=== PATIENT | female | born 1945 | race Caucasian/White ===

== ENCOUNTER 2019-01-24 06:14 | Emergency (ER) | payer MEDICARE ==
--- NOTE | 2019-01-24 07:01 | ED Physician Documentation ---
PD HPI SYNCOPE - Stated complaint Stated Complaint: GLF - Chief complaint Chief Complaint: Trauma Ext - History obtained from History obtained from: Patient - History of Present Illness Witnessed: Unwitnessed ( heard a thud from next room and came into bathroom to find pt rousing and moving around some. Confused at first but alert in a few minutes. Some pain in shoulder and struck head. Seemed confused for few minutes. Patient says she remembers going to bathroom and stood up and felt lightheaded, then remembers awake on the floor.) Timing - onset: How many minutes ago Duration: Minutes (1) Preceding symptoms: Headache (some headache where struck head on door while falling.), Light headed. No: Chest pain, Dyspnea, Abdominal pain, Generalized weakness Associated symptoms: No: Chest pain, Nausea / vomiting, Abdominal pain Contributing factors: Just stood up (after going to the bathroom). No: Recent med change, Decreased PO intake Injury occurred: Fell, Head injury. 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 Cardiovascular: Other - Present Medications Home Medications: Ambulatory Orders Medication Instructions Recorded Confirmed No Known Home Medications 01/24/19 01/24/19 - Allergies Allergies/Adverse Reactions: Allergies Allergy/AdvReac Type Severity Reaction Status Date / Time No Known Drug Allergies Allergy Verified 01/24/19 06:29 - Social History Does the pt smoke?: No Smoking Status: Never smoker Does the pt drink ETOH?: No Does the pt have substance abuse?: No - Immunizations Immunizations are current?: Yes - POLST Patient has POLST: No PD ED PE NORMAL - Vitals Vital signs reviewed: Yes - General General: Alert and oriented X 3, Well developed/nourished, Other (chin tender. Some tender frontal scalp. ) - HEENT HEENT: PERRL, EOMI - Neck Neck: Supple, no meningeal sign, No adenopathy - Cardiac Cardiac: RRR, No murmur - Respiratory Respiratory: Clear bilaterally, Other (no chestwall tenderness) - Abdomen Abdomen: Soft, Non tender - Back Back: No CVA TTP, No spinal TTP - Derm Derm: Normal color, Warm and dry - Extremities Extremities: Other (left shoulder tender in scapular area. No deformity. ) - Neuro Neuro: Alert and oriented X 3, perfumer 2-12 intact, No motor deficit, No sensory deficit, Normal speech Results - Vitals Vitals: Vital Signs - 24 hr 01/24/19 01/24/19 01/24/19 06:20 06:57 08:10 Temperature 36.7 C Heart Rate 97 81 Heart Rate [ 94 Sitting] Heart Rate [ 90 Standing] Heart Rate [ 93 Supine] Respiratory 18 16 Rate Blood Pressure 140/78 H 126/74 Blood Pressure 146/90 H [Sitting] Blood Pressure 153/95 H [Standing] Blood Pressure 122/68 [Supine] O2 Saturation 98 100 01/24/19 01/24/19 09:17 09:18 Temperature 36.9 C 36.9 C Heart Rate 85 85 Heart Rate [ Sitting] Heart Rate [ Standing] Heart Rate [ Supine] Respiratory 20 17 Rate Blood Pressure 132/70 H 132/70 H Blood Pressure [Sitting] Blood Pressure [Standing] Blood Pressure [Supine] O2 Saturation 99 99 Oxygen O2 Source Room air - Labs Labs: Laboratory Tests 01/24/19 01/24/19 01/24/19 07:52 07:52 07:52 WBC 9.8 RBC 4.33 Hgb 13.7 Hct 43.3 MCV 100.0 H MCH 31.6 H MCHC 31.6 L RDW 13.2 Plt Count 186 MPV 10.3 Neut # (Auto) 7.6 H Lymph # (Auto) 1.5 [place] # (Auto) 0.5 Eos # (Auto) 0.1 Baso # (Auto) 0.1 Absolute Nucleated RBC 0.00 Nucleated RBC % 0.0 Sodium 139 Potassium 4.1 Chloride 104 Carbon Dioxide 24 Anion Gap 11.0 BUN 21 H Creatinine 0.6 Estimated GFR (MDRD) 98 Glucose 101 H Calcium 9.2 Magnesium 2.4 Total Bilirubin 0.5 AST 15 ALT 16 Alkaline Phosphatase 61 Troponin I High Sens 3.2 Total Protein 7.2 Albumin 4.6 Globulin 2.6 Albumin/Globulin Ratio 1.8 Lipase 38 - Rads (name of study) head CT Radiology: Prelim report reviewed, See rad report (no acute findings) left shoulder Radiology: Prelim report reviewed (no fractures), See rad report PD MEDICAL DECISION MAKING - ED course Complexity details: considered differential (seems likely postural/micturation syncope. No signs of cardiogenic cause. She is well now. ), d/w patient Departure - Departure Disposition: 01 Home, Self Care Clinical Impression: Postural syncope Shoulder contusion Qualifiers: Encounter type: initial encounter Laterality: left Qualified Code(s): S40.012A - Contusion of left shoulder, initial encounter Facial contusion Qualifiers: Encounter type: initial encounter Qualified Code(s): S00.83XA - Contusion of other part of head, initial encounter Mild concussion Qualifiers: Encounter type: initial encounter Loss of consciousness presence/duration: with LOC of 30 min or less Qualified Code(s): S06.0X1A - Concussion with loss of consciousness of 30 minutes or less, initial encounter Condition: Stable Record reviewed to determine appropriate education?: Yes Instructions: ED Fainting Unkn Cause Comments: It sounds like you had a fainting episode and may have had some mild concussion. You could have had some confusion after awakening from just the fainting itself as well. He look good now so does not seem to have any lasting symptoms. Stay well-hydrated. Get up and move slowly when first sitting up or standing up today and in the mornings. Recheck if any persistent or recurrent episodes or symptoms. No signs of heart cause of this and your basic blood tests are looking good here. Discharge Date/Time: 01/24/19 09:17
[2019-01-24] MEDS ORDERED: SODIUM CHLORIDE 0.9% 1,000 ML IV ONE (07:22)
--- NOTE | 2019-01-24 07:56 | CT Report ---
Reason: fell and struck face; ? concussive confused Procedure Date: 01/24/2019 Accession Number: [id number] / [id number] Procedure: CT - HEAD WO CPT Code: FULL RESULT: EXAM: CT HEAD EXAM DATE: 01/24/2019 07:45 AM. CLINICAL HISTORY: Fell and struck face; ? concussive confused. COMPARISON: None. TECHNIQUE: Multiaxial CT images were obtained from the foramen magnum to the vertex. Reformats: Sagittal and coronal. IV contrast: None. In accordance with CT protocol optimization, one or more of the following dose reduction techniques were utilized for this exam: automated exposure control, adjustment of mA and/or KV based on patient size, or use of iterative reconstructive technique. FINDINGS: Parenchyma: No intraparenchymal hemorrhage. No evidence of mass, midline shift, or CT findings of infarction. Dave-white differentiation is distinct. Extraaxial Spaces: Normal for age. No subdural or epidural collections identified. Ventricles: Normal in size and position. Sinuses and Orbits: Imaged paranasal sinuses, orbits, and mastoids show no significant abnormality. Bones: No evidence of fracture or calvarial defect. Other: None. IMPRESSION: No intracranial hemorrhage, mass-effect, CT evidence of acute infarct, or other acute intracranial abnormality. RADIA
--- NOTE | 2019-01-24 07:57 | XRAY Report ---
Reason: fall and struck shoulder Procedure Date: 01/24/2019 Accession Number: [id number] / [id number] Procedure: XR - Shoulder 3 View LT CPT Code: FULL RESULT: EXAM: LEFT SHOULDER RADIOGRAPHY EXAM DATE: 01/24/2019 07:46 AM. CLINICAL HISTORY: Fall and struck shoulder. COMPARISON: None. TECHNIQUE: 3 views. FINDINGS: Bones: Normal. No fracture or bone lesion. Joints: The glenohumeral and acromioclavicular joints are normal. Soft tissues: The visualized hemithorax is unremarkable. No soft tissue swelling. IMPRESSION: Normal shoulder radiography. No fracture or other acute osseous abnormality. RADIA
[2019-01-24 08:08] LABS: BASOPHILS # (AUTO) 0.1 10^3/uL (0.0-0.1); BASOPHILS % (AUTO) 0.7 %; EOSINOPHILS # (AUTO) 0.1 10^3/uL (0.0-0.7); EOSINOPHILS % (AUTO) 0.5 %; HGB - HEMOGLOBIN 13.7 g/dL (12.0-16.0); LYMPHOCYTES # (AUTO) 1.5 10^3/uL (1.5-3.5); MEAN CORPUSCULAR HEMOGLOBIN 31.6 pg (27.0-31.0); MEAN CORPUSCULAR HGB CONC 31.6 g/dL (32.0-36.0); MEAN PLATELET VOLUME 10.3 fL (7.9-10.8); MONOCYTES # (AUTO) 0.5 10^3/uL (0.0-1.0); MONOCYTES % (AUTO) 5.5 %; NEUTROPHILS # (AUTO) 7.6 10^3/uL (1.5-6.6); PLT - PLATELET COUNT 186 10^3/uL (130-450); RED BLOOD COUNT 4.33 10^6/uL (4.20-5.40); RED CELL DISTRIBUTION WIDTH 13.2 % (12.0-15.0); WHITE BLOOD COUNT 9.8 x10^3/uL (4.8-10.8)
[2019-01-24 08:28] LABS: ALBUMIN 4.6 g/dL (3.2-5.5); ALBUMIN/GLOBULIN RATIO 1.8 (1.0-2.2); BILIRUBIN,TOTAL 0.5 mg/dL (0.2-1.0); CALCIUM 9.2 mg/dL (8.5-10.3); CREATININE 0.6 mg/dL (0.4-1.0); MAGNESIUM 2.4 mg/dL (1.7-2.8); TOTAL PROTEIN 7.2 g/dL (6.7-8.2)
[2019-01-24 09:18] VITALS: BP 132/70
== END 2019-01-24 09:17 | disposition home or self-care (01) ==
LOC: ED 06:14
DX: R55 Syncope and collapse (principal); S06.0X1A Concussion with loss of consciousness of 30 minutes or less, initial encounter; S40.012A Contusion of left shoulder, initial encounter; S00.83XA Contusion of other part of head, initial encounter; W18.30XA Fall on same level, unspecified, initial encounter; Y92.002 Bathroom of unspecified non-institutional (private) residence as the place of occurrence of the external cause
CPT/HCPCS: 36415; 70450; 80053; 83690; 83735; 84484; 85025; 93005; 99284

== ENCOUNTER 2019-07-13 09:47 | Outpatient (CLI) | payer MEDICARE | END 2019-07-13 09:48 | disposition critical access hospital (66) | LOC: EMS 09:47 | PROVIDERS: ATTEND Surgery | DX: R00.2 Palpitations (principal); R42 Dizziness and giddiness | CPT/HCPCS: A0425; A0429 ==

== ENCOUNTER 2019-07-13 10:26 | Emergency (ER) | payer MEDICARE ==
[2019-07-13] MEDS ORDERED: ADENOSINE 6 MG/2 ML VIAL IVP STA (10:36)
[2019-07-13] MEDS ORDERED: SODIUM CHLORIDE 0.9% 1,000 ML IV ONE ×2 (10:37→11:43)
[2019-07-13] MEDS ORDERED: ADENOSINE 6 MG/2 ML VIAL IVP ONE (10:47)
--- NOTE | 2019-07-13 10:54 | ED Physician Documentation ---
History of Present Illness - Stated complaint Stated Complaint: SVT - Chief complaint Chief Complaint: Cardiac - History obtained from History obtained from: Patient, Family, EMS - History of Present Illness Timing: Today Pain level max: 0 Pain level now: 0 - Additonal information Additional information: 74-year-old female presents to the emergency department with complaint of palpitations. This started approximately an hour prior to arrival. She has never had this before. No chest pain. No shortness of breath. Nothing makes it better or worse. Is not on any medications at home. Patient states that her normal heart rate is approximately 95 to 100 bpm Review of Systems Constitutional: denies: Fever, Chills Nose: denies: Rhinorrhea / runny nose, Congestion Cardiac: denies: Chest pain / pressure Respiratory: denies: Dyspnea, Cough GI: denies: Abdominal Pain, Nausea, Vomiting, Diarrhea Skin: denies: Rash Musculoskeletal: denies: Neck pain, Back pain PD PAST MEDICAL HISTORY - Past Medical History Cardiovascular: High cholesterol Respiratory: None Endocrine/Autoimmune: None GI: None : None HEENT: None Psych: Claustrophobia Musculoskeletal: Osteoarthritis Derm: None - Past Surgical History Past Surgical History: Yes 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 Cardiovascular: Other - Present Medications Home Medications: Ambulatory Orders Medication Instructions Recorded Confirmed No Known Home Medications 01/24/19 07/13/19 - Allergies Allergies/Adverse Reactions: Allergies Allergy/AdvReac Type Severity Reaction Status Date / Time No Known Drug Allergies Allergy Verified 07/13/19 10:38 - Social History Does the pt smoke?: No Smoking Status: Never smoker Does the pt drink ETOH?: No Does the pt have substance abuse?: No - Immunizations Immunizations are current?: Yes - POLST Patient has POLST: No PD ED PE NORMAL - Vitals Vital signs reviewed: Yes - General General: Alert and oriented X 3, No acute distress - HEENT HEENT: PERRL - Neck Neck: Supple, no meningeal sign - Cardiac Cardiac: Other (Tachycardic) - Respiratory Respiratory: No respiratory distress, Clear bilaterally - Abdomen Abdomen: Soft, Non tender, Non distended - Derm Derm: Warm and dry - Extremities Extremities: No edema - Neuro Neuro: Alert and oriented X 3 - Psych Psych: Normal mood, Normal affect Results - Vitals Vitals: Vital Signs - 24 hr 07/13/19 07/13/1920 10:29 10:48 11:25 Temperature 36.8 C Heart Rate 162 H 130 H 112 H Respiratory 18 18 18 Rate Blood Pressure 138/113 H 149/101 H 131/86 H O2 Saturation 99 98 99 07/13/19 07/13/19 12:00 12:30 Temperature Heart Rate 118 H 110 H Respiratory 24 18 Rate Blood Pressure 155/103 H 145/88 H O2 Saturation 98 100 Oxygen O2 Source Room air - EKG (time done) 1032 Rate: Rate (enter#) (162) Rhythm: SVT [place]: Normal QRS: Normal Ischemia: Normal ST segments 1217 Rate: Rate (enter#) (107) Rhythm: Sinus tachycardia [place]: Normal Intervals: Normal [place] QRS: Normal Ischemia: Normal ST segments - Labs Labs: Laboratory Tests 07/13/19 07/13/19 10:50 10:50 WBC 5.8 RBC 4.54 Hgb 14.4 Hct 44.3 MCV 97.6 MCH 31.7 H MCHC 32.5 RDW 13.6 Plt Count 209 MPV 9.5 Neut # (Auto) 3.6 Lymph # (Auto) 1.6 [place] # (Auto) 0.5 Eos # (Auto) 0.1 Baso # (Auto) 0.1 Absolute Nucleated RBC 0.00 Nucleated RBC % 0.0 Sodium 140 Potassium 4.2 Chloride 102 Carbon Dioxide 22 Anion Gap 16.0 H BUN 28 H Creatinine 0.8 Estimated GFR (MDRD) 70 L Glucose 117 H Calcium 9.1 Phosphorus 3.5 Magnesium 2.2 Total Bilirubin 0.7 AST 16 ALT 14 Alkaline Phosphatase 53 Total Protein 7.3 Albumin 4.3 Globulin 3.0 Albumin/Globulin Ratio 1.4 Lipase 37 PD MEDICAL DECISION MAKING - ED course Complexity details: reviewed results, re-evaluated patient, considered differential, d/w patient ED course: Patient with SVT. She converted with adenosine to sinus tachycardia. Heart rate gradually decreased to near her baseline with IV fluids. She feels much better. We will have her follow-up with her doctor for further care. Patient counseled regarding signs and symptoms for which I believe and urgent re- evaluation would be necessary. Patient with good understanding of and agreement to plan and is comfortable going home at this time This document was made in part using voice recognition software. While efforts are made to proofread this document, sound alike and grammatical errors may occur. Departure - Departure Disposition: 01 Home, Self Care Clinical Impression: SVT (supraventricular tachycardia), Dehydration Condition: Good Instructions: ED Tachycardia Pat PSVT Follow-Up: Christine Harrell ARNP [Primary Care Provider] - Within 1 week Comments: Follow-up with your doctor for further care. They may want to refer you to a e learning designer for further evaluation. Discharge Date/Time: 07/13/19 12:37
[2019-07-13 10:58] LABS: BASOPHILS # (AUTO) 0.1 10^3/uL (0.0-0.1); BASOPHILS % (AUTO) 0.9 %; EOSINOPHILS # (AUTO) 0.1 10^3/uL (0.0-0.7); HGB - HEMOGLOBIN 14.4 g/dL (12.0-16.0); LYMPHOCYTES # (AUTO) 1.6 10^3/uL (1.5-3.5); LYMPHOCYTES % (AUTO) 27.1 %; MEAN CORPUSCULAR HEMOGLOBIN 31.7 pg (27.0-31.0); MEAN CORPUSCULAR HGB CONC 32.5 g/dL (32.0-36.0); MEAN CORPUSCULAR VOLUME 97.6 fL (81.0-99.0); MEAN PLATELET VOLUME 9.5 fL (7.9-10.8); MONOCYTES # (AUTO) 0.5 10^3/uL (0.0-1.0); MONOCYTES % (AUTO) 8.1 %; NEUTROPHILS # (AUTO) 3.6 10^3/uL (1.5-6.6); NEUTROPHILS % (AUTO) 62.7 %; PLT - PLATELET COUNT 209 10^3/uL (130-450); RED BLOOD COUNT 4.54 10^6/uL (4.20-5.40); RED CELL DISTRIBUTION WIDTH 13.6 % (12.0-15.0); WHITE BLOOD COUNT 5.8 x10^3/uL (4.8-10.8)
[2019-07-13 11:19] LABS: ALBUMIN 4.3 g/dL (3.2-5.5); ALBUMIN/GLOBULIN RATIO 1.4 (1.0-2.2); BILIRUBIN,TOTAL 0.7 mg/dL (0.2-1.0); CALCIUM 9.1 mg/dL (8.5-10.3); CREATININE 0.8 mg/dL (0.4-1.0); MAGNESIUM 2.2 mg/dL (1.7-2.8); PHOSPHORUS 3.5 mg/dL (2.5-4.6); TOTAL PROTEIN 7.3 g/dL (6.7-8.2)
[2019-07-13 12:37] VITALS: BP 145/88
== END 2019-07-13 12:37 | disposition home or self-care (01) ==
LOC: EDUNIT# → ED 10:26
DX: I47.1 Supraventricular tachycardia (principal); E86.0 Dehydration
CPT/HCPCS: 36415; 80053; 83690; 83735; 84100; 85025; 93005; 96361; 96374; 99284; J0153

== ENCOUNTER 2019-12-05 14:33 | Outpatient (CLI) | payer MEDICARE ==
--- NOTE | 2019-12-07 09:14 | Mammography Report ---
BILATERAL DIGITAL SCREENING MAMMOGRAM 3D/2D: 12/05/2019 CLINICAL: Routine screening. Comparison is made to exams dated: 02/12/2015 mammogram, 06/09/2012 mammogram, 03/23/2011 mammogram, a nd 03/18/2010 mammogram - [facility]. There are scattered fibroglandular elements in both breasts. No significant masses, calcifications, or other findings are seen in either breast. There has been no significant interval change. IMPRESSION: NEGATIVE There is no mammographic evidence of malignancy. A 1 year screening mammogram is recommended. This exam was interpreted at Station ID: [id number]. NOTE: For mammograms, a report in lay terms will be sent to the patient. Approximately 15% of breast malignancies will not be visualized mammographically. In the management of a palpable breast mass, a negative mammogram must not discourage biopsy of a clinically suspicious lesion. Electronically Signed By: Gino Chen M.D. slc/penrad:12/06/2019 17:23:09 ACR BI-RADS Category 1: Negative [id number] PARENCHYMAL PATTERN: (A) - The breast(s) demonstrate(s) scattered fibroglandular densities. BI-RADS CATEGORY: (1) - 1 RECOMMENDATION: (ANNUAL) - Recommend routine annual screening mammography. [id number] 1 year screening LATERALITY: (B)
== END 2019-12-05 14:34 | disposition home or self-care (01) ==
LOC: DI 14:33
PROVIDERS: ATTEND Registered Nurse
DX: Z12.31 Encounter for screening mammogram for malignant neoplasm of breast (principal)
CPT/HCPCS: 77063; 77067

== ENCOUNTER 2020-11-28 12:39 | Outpatient (CLI) | payer MEDICARE | END 2020-11-28 12:40 | disposition critical access hospital (66) | LOC: EMS 12:39 | DX: R42 Dizziness and giddiness (principal); R00.2 Palpitations; I10 Essential (primary) hypertension | CPT/HCPCS: A0425; A0429 ==

== ENCOUNTER 2020-11-28 13:09 | Emergency (ER) | payer MEDICARE ==
[2020-11-28 13:34] LABS: BASOPHILS # (AUTO) 0.1 10^3/uL (0.0-0.1); EOSINOPHILS # (AUTO) 0.1 10^3/uL (0.0-0.7); HGB - HEMOGLOBIN 13.9 g/dL (12.0-16.0); LYMPHOCYTES # (AUTO) 1.5 10^3/uL (1.5-3.5); LYMPHOCYTES % (AUTO) 20.6 %; MEAN CORPUSCULAR HEMOGLOBIN 32.3 pg (27.0-31.0); MEAN CORPUSCULAR HGB CONC 32.3 g/dL (32.0-36.0); MEAN CORPUSCULAR VOLUME 99.8 fL (81.0-99.0); MEAN PLATELET VOLUME 9.3 fL (7.9-10.8); MONOCYTES # (AUTO) 0.7 10^3/uL (0.0-1.0); MONOCYTES % (AUTO) 10.3 %; NEUTROPHILS # (AUTO) 4.7 10^3/uL (1.5-6.6); NEUTROPHILS % (AUTO) 65.8 %; PLT - PLATELET COUNT 216 10^3/uL (130-450); RED BLOOD COUNT 4.31 10^6/uL (4.20-5.40); RED CELL DISTRIBUTION WIDTH 13.2 % (12.0-15.0); WHITE BLOOD COUNT 7.2 x10^3/uL (4.8-10.8)
[2020-11-28] MEDS ORDERED: SODIUM CHLORIDE 0.9% 1,000 ML IV STA (13:48)
[2020-11-28 13:49] LABS: ALBUMIN 4.6 g/dL (3.2-5.5); ALBUMIN/GLOBULIN RATIO 1.6 (1.0-2.2); CALCIUM 9.4 mg/dL (8.5-10.3); CREATININE 0.7 mg/dL (0.4-1.0); POTASSIUM 3.6 mmol/L (3.5-5.0); TOTAL PROTEIN 7.4 g/dL (6.7-8.2)
--- NOTE | 2020-11-28 13:51 | ED Physician Documentation ---
History of Present Illness - Stated complaint Stated Complaint: HIGH BP - Chief complaint Chief Complaint: Cardiac - Additonal information Additional information: 75-year-old female presents emergency department for evaluation of intermittent palpitations over the last 3 to 4 days especially when she was traveling. She is also noted that her blood pressure has been high recently and occasionally she has felt dizzy and off balance. She does have a history of SVT and was seen here in 2019 for similar. She was cardioverted and has had no recurrence until the last 3 to 4 days. She has not had any chest pain or shortness of air. No syncopal events. No leg swelling. With regards to the sensation of dizziness she denies any headache or diplopia but sometimes feels off balance though her gait is unremarkable and she has not had any falls. She takes no medications for control of her blood pressure. Review of Systems Constitutional: denies: Fever, Chills Eyes: denies: Loss of vision, Decreased vision Ears: reports: Reviewed and negative Nose: reports: Rhinorrhea / runny nose Throat: reports: Reviewed and negative Cardiac: reports: Palpitations. denies: Chest pain / pressure, Pedal edema, Calf pain Respiratory: denies: Dyspnea, Cough, Hemoptysis, Wheezing GI: denies: Abdominal Pain, Abdominal Swelling, Nausea, Vomiting : denies: Dysuria, Frequency, Hesitancy Skin: denies: Rash, Lesions Musculoskeletal: denies: Neck pain, Back pain Neurologic: denies: Generalized weakness, Focal weakness, Numbness, Difficulty speaking, Near syncope, Syncope, Seizure, Confused, Headache, Head injury, LOC PD PAST MEDICAL HISTORY - Past Medical History Cardiovascular: High cholesterol Respiratory: None Endocrine/Autoimmune: None GI: None : None HEENT: None Psych: Claustrophobia Musculoskeletal: Osteoarthritis Derm: None - Past Surgical History Past Surgical History: Yes 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 Cardiovascular: Other - Present Medications Home Medications: Ambulatory Orders Medication Instructions Recorded Confirmed No Known Home Medications 01/24/19 11/28/20 - Allergies Allergies/Adverse Reactions: Allergies Allergy/AdvReac Type Severity Reaction Status Date / Time No Known Drug Allergies Allergy Verified 11/28/20 13:29 - Social History Does the pt smoke?: No Smoking Status: Never smoker Does the pt drink ETOH?: No Does the pt have substance abuse?: No - Immunizations Immunizations are current?: Yes - POLST Patient has POLST: No PD ED PE EXPANDED - General General: Alert, No acute distress, Well developed/nourished - HEENT HEENT: PERRL - Eyes Eyes: PERRL, Normal accommodation - Neck Neck: Supple w/out meningeal sx. No: Adenopathy - Cardiac Cardiac: Regular Rate, Radial strong equal, Pedal strong equal, Cap refill < 2 sec. No: Murmur Present - Respiratory Respiratory: Clear to ausultation doris. No: Distress, Labored - Abdomen Abdomen: Normal Bowel sounds. No: Tender to palpation - Derm Derm: Normal color, Warm and dry. No: Rash - Extremities Extremities: Normal. No: Deformity, Tenderness - Neuro Neuro: Alert and Oriented X 3, CNII-XII intact, Cerebellar nl, Normal gait, Normal finger nose, Normal speech. No: Dyscongugate gaze, Nystagmus, Aphasia - GCS Eye Opening: Spontaneous Motor: Obeys Commands Verbal: Oriented Total: 15 Results - Vitals Vitals: Vital Signs - 24 hr 11/28/20 11/28/20 13:12 13:52 Temperature 36.8 C Heart Rate 74 82 Respiratory 16 16 Rate Blood Pressure 153/82 H 142/84 H O2 Saturation 100 Oxygen O2 Source Room air - EKG (time done) 1320 Rate: Rate (enter#) (73) Rhythm: NSR Intervals: Normal [place]. No: Prolonged QT QRS: Low voltage Ischemia: Q waves (V1V2) Compare to prior EKG: Changed from prior EKG (previously showed SVT) Computer interpretation: Agree with computer - Labs Labs: Laboratory Tests 11/28/20 11/28/20 11/28/20 13:29 13:29 13:29 WBC 7.2 RBC 4.31 Hgb 13.9 Hct 43.0 MCV 99.8 H MCH 32.3 H MCHC 32.3 RDW 13.2 Plt Count 216 MPV 9.3 Neut # (Auto) 4.7 Lymph # (Auto) 1.5 [place] # (Auto) 0.7 Eos # (Auto) 0.1 Baso # (Auto) 0.1 Absolute Nucleated RBC 0.00 Nucleated RBC % 0.0 Sodium 136 Potassium 3.6 Chloride 97 L Carbon Dioxide 25 Anion Gap 14.0 H BUN 22 H Creatinine 0.7 Estimated GFR (MDRD) 82 L Glucose 107 H Calcium 9.4 Total Bilirubin 1.0 AST 18 ALT 18 Alkaline Phosphatase 57 Troponin I High Sens 6.2 B-Natriuretic Peptide Total Protein 7.4 Albumin 4.6 Globulin 2.8 Albumin/Globulin Ratio 1.6 Lipase 33 Urine Color Urine Clarity Urine pH Ur Specific [place] Urine Protein Urine Glucose (UA) Urine Ketones Urine Occult Blood Urine Nitrite Urine Bilirubin Urine Urobilinogen Ur Leukocyte Esterase Ur Microscopic Review Urine Culture Comments 11/28/20 11/28/20 13:29 13:29 WBC RBC Hgb Hct MCV MCH MCHC RDW Plt Count MPV Neut # (Auto) Lymph # (Auto) [place] # (Auto) Eos # (Auto) Baso # (Auto) Absolute Nucleated RBC Nucleated RBC % Sodium Potassium Chloride Carbon Dioxide Anion Gap BUN Creatinine Estimated GFR (MDRD) Glucose Calcium Total Bilirubin AST ALT Alkaline Phosphatase Troponin I High Sens B-Natriuretic Peptide 162 H Total Protein Albumin Globulin Albumin/Globulin Ratio Lipase Urine Color YELLOW Urine Clarity CLEAR Urine pH 5.5 Ur Specific [place] 1.025 Urine Protein NEGATIVE Urine Glucose (UA) NEGATIVE Urine Ketones 15 H Urine Occult Blood NEGATIVE Urine Nitrite NEGATIVE Urine Bilirubin NEGATIVE Urine Urobilinogen 0.2 (NORMAL) Ur Leukocyte Esterase NEGATIVE Ur Microscopic Review NOT INDICATED Urine Culture Comments NOT INDICATED - Rads (name of study) cxr Radiology: Final report received (No acute cardiopulmonary process) PD MEDICAL DECISION MAKING - ED course Complexity details: reviewed results, re-evaluated patient, d/w patient ED course: This is a very well-appearing 75-year-old female that presents the emergency department for evaluation of intermittent palpitations as well as a [place] station of sometimes feeling off balance that is very short-lived. She denies any chest pain or shortness of air. She does have a history of SVT and with the increasing frequency of palpitation she checked her blood pressure at home and found that her systolic was 190 therefore she presented to the ER for further evaluation. Her screening EKG today shows a nonischemic rhythm essentially unchanged from a 2019. High-sensitivity troponin is negative. While here in the ER she has been on a monitor and no ectopy or arrhythmia was noted. She has noted to be modestly hypertensive with systolic blood pressures in the 150s. She does not take antihypertensive meds and giving the reassuring labs today including a blood count and renal panel I do not feel it would behoove her to initiate medication through the ER today. I do think she would benefit from a Holter monitor given the intermittent palpitations as well as referral for an echocardiogram and outpatient stress test. I discussed this with the patient and she is agreeable to outpatient follow-up with her primary care provider. Emergent return precautions were discussed. Departure - Departure Disposition: Home, Self Care Clinical Impression: Palpitations, Elevated blood pressure reading Condition: Stable Record reviewed to determine appropriate education?: Yes Follow-Up: Christine Harrell ARNP [Primary Care Provider] - Comments: Paula you are seen in the ER today for the sensation of palpitations as well as concerned that your blood pressure had been reading high. Your screening labs today did not reveal any worrisome findings. However you may have been mildly dehydrated. We did give you a liter of IV fluids. As we discussed at the bedside when I listen to your heart and lungs it sounds very normal. Your chest x-ray was normal. While here in the emergency department you did not have any abnormal rhythms. I think that you would benefit from an outpatient Holter monitor as well as an echocardiogram and a stress test. Please discuss this with your primary care provider. Return immediately to the emergency department if you are developing worsening symptoms, have any fainting episodes, chest pain shortness of air or any other emergent concerns.
[2020-11-28 13:55] LABS: BILIRUBIN,URINE NEGATIVE (NEGATIVE); GLUCOSE, URINE (UA) NEGATIVE (NEGATIVE); KETONES,URINE (UA) 15 mg/dL (NEGATIVE); LEUKOCYTE ESTERASE, URINE NEGATIVE (NEGATIVE); NITRITE,URINE NEGATIVE (NEGATIVE); OCCULT BLOOD,URINE NEGATIVE (NEGATIVE); PH,URINE 5.5 PH (5.0-7.5); PROTEIN,URINE NEGATIVE (NEGATIVE); UROBILINOGEN,URINE 0.2 (NORMAL) E.U./dL (NORMAL)
[2020-11-28 13:56] LABS: CLARITY,URINE CLEAR (CLEAR)
--- NOTE | 2020-11-28 14:11 | XRAY Report ---
PROCEDURE: Chest 1 View X-Ray INDICATIONS: Chest Pain TECHNIQUE: One view of the chest was acquired. COMPARISON: None FINDINGS: Surgical changes and devices: None. Lungs and pleura: No pleural effusions or pneumothorax. Lungs are clear. Mediastinum: Mediastinal contours appear normal. Heart size is normal. Bones and chest wall: No suspicious bony lesions. Overlying soft tissues appear unremarkable. IMPRESSION: No acute cardiopulmonary disease process. Reviewed by: Shirin Colon MD, PhD on 11/28/2020 2:09 PM PDT Approved by: Shirin Colon MD, PhD on 11/28/2020 2:09 PM PDT Station ID: [id number]
[2020-11-28 16:01] VITALS: BP 134/72
== END 2020-11-28 16:01 | disposition home or self-care (01) ==
LOC: EDUNIT# → ED 13:09
DX: R00.2 Palpitations (principal); R03.0 Elevated blood-pressure reading, without diagnosis of hypertension
CPT/HCPCS: 36415; 80053; 81001; 81003; 83690; 83880; 84484; 85025; 87086; 93005; 99284

== ENCOUNTER 2020-12-04 10:50 | Emergency (ER) | payer MEDICARE ==
[2020-12-04] MEDS ORDERED: BUFFERED LIDOCAINE 10 ML SYRINGE SUBQ STA (13:35)
--- NOTE | 2020-12-04 13:46 | CT Report ---
PROCEDURE: HEAD WO INDICATIONS: Trauma, loss of consciousness TECHNIQUE: Noncontrast 4.5 mm thick angled axial sections acquired from the foramen magnum to the vertex. For r adiation dose reduction, the following was used: automated exposure control, adjustment of mA and/or kV according to patient size. COMPARISON: 01/24/2019 FINDINGS: Image quality: Excellent. CSF spaces: Basal cisterns are patent. No extra-axial fluid collections. Ventricles are normal in size and shape. Brain: No midline shift. No intracranial masses or hemorrhage. Dave-white matter interface is norm al. Skull and face: Calvarium and visualized facial bones are intact, without suspicious lesions. Sinuses: Visualized sinuses and mastoids are clear. IMPRESSION: No acute intracranial abnormality. Reviewed by: Yoav Jones MD on 12/04/2020 1:45 PM PDT Approved by: Yoav Jones MD on 12/04/2020 1:45 PM PDT Station ID: [id number]
--- NOTE | 2020-12-04 13:58 | CT Report ---
PROCEDURE: CERVICAL SPINE WO INDICATIONS: Head injury, neck pain TECHNIQUE: Noncontrast 3 mm thick sections acquired from the skull base to the T4 level. Sagittal and coronal r eformats were then constructed. For radiation dose reduction, the following was used: automated exp osure control, adjustment of mA and/or kV according to patient size. COMPARISON: None. FINDINGS: Image quality: Excellent. Bones: There is no fracture. Mild retrolisthesis of C4 on C5 measuring 3 mm and of C5 on C6 measuring 3 mm, likely degenerative at both levels. Otherwise normal alignment. Facet spaces are congruent wit h no evidence of subluxation or dislocation. Degenerative endplate changes and disc height loss are p resent from C3-C4 through C6-C7 along with mild uncovertebral arthropathy. Soft tissues: Prevertebral soft tissues are normal in thickness. No paravertebral hematomas. No ap ical pneumothoraces. IMPRESSION: No CT evidence of acute traumatic cervical spine injury. Reviewed by: Yoav Jones MD on 12/04/2020 1:56 PM PDT Approved by: Yoav Jones MD on 12/04/2020 1:56 PM PDT Station ID: [id number]
--- NOTE | 2020-12-04 13:59 | ED Physician Documentation ---
PD HPI HEAD INJURY - Stated complaint Stated Complaint: HEAD INJURY/LOSS OF CON - Chief complaint Chief Complaint: Neuro - History obtained from History obtained from: Patient - History of Present Illness Mechanism of head injury: Fell Where head injury occurred: Home Timing - onset: Today Location of injury: Back Quality of pain: Pain Associated symptoms: LOC, Neck pain. No: AMS, Amnesia, Nausea / vomiting, Paresthesias, Seizures, Ear drainage, Nasal drainage Symptoms improve with: Rest Symptoms worsen with: Palpation, Movement Contributing factors: No: Anticoagulated Similar symptoms before: Has not had sx before Recently seen: Other - Additional information Additional information: 75-year-old female who got her second Covid vaccination shot yesterday and this morning she got out of bed went to go into the bathroom felt a bit lightheaded and dizzy sat down on the edge of the bathtub and then found herself in the bathtub with blood on her hair. She has some mild pain in her neck she does not have any nausea or vomiting she has a mild headache. She has blood to the back of her head. She is not on anticoagulation. Review of Systems Constitutional: denies: Fever Eyes: denies: Decreased vision Ears: denies: Ear pain Nose: denies: Reviewed and negative Throat: denies: Sore throat Cardiac: denies: Chest pain / pressure, Palpitations Respiratory: denies: Dyspnea, Cough GI: denies: Abdominal Pain, Nausea, Vomiting, Constipation, Diarrhea : denies: Dysuria, Frequency PD PAST MEDICAL HISTORY - Past Medical History Cardiovascular: High cholesterol Respiratory: None Endocrine/Autoimmune: None GI: None : None HEENT: None Psych: Claustrophobia Musculoskeletal: Osteoarthritis Derm: None - Past Surgical History Past Surgical History: Yes General: Colonoscopy /ELECTRIC [employer]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[employer]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 Cardiovascular: Other - Present Medications Home Medications: Ambulatory Orders Medication Instructions Recorded Confirmed No Known Home Medications 01/24/19 11/28/20 - Allergies Allergies/Adverse Reactions: Allergies Allergy/AdvReac Type Severity Reaction Status Date / Time No Known Drug Allergies Allergy Verified 12/04/20 11:12 - Social History Does the pt smoke?: No Smoking Status: Never smoker Does the pt drink ETOH?: No Does the pt have substance abuse?: No - Immunizations Immunizations are current?: Yes - POLST Patient has POLST: No PD ED PE NORMAL - Vitals Vital signs reviewed: Yes (Tachycardic and hypertensive) - General General: Alert and oriented X 3, No acute distress, Well developed/nourished - HEENT HEENT: PERRL, EOMI, Other (There is a 2.5 cm laceration to the right occiput. There is no involvement of deeper structures) - Neck Neck: Supple, no meningeal sign, Other (Mild midline tenderness) - Cardiac Cardiac: RRR, No murmur - Respiratory Respiratory: No respiratory distress, Clear bilaterally - Abdomen Abdomen: Normal bowel sounds, Soft, Non tender, Non distended, No organomegaly - Back Back: No CVA TTP, No spinal TTP - Derm Derm: Normal color, Warm and dry, No rash - Extremities Extremities: No deformity, No edema - Neuro Neuro: Alert and oriented X 3, progress clerk 2-12 intact, No motor deficit, No sensory deficit, Normal speech Eye Opening: Spontaneous Motor: Obeys Commands Verbal: Oriented GCS Score: 15 - Psych Psych: Normal mood, Normal affect Results - Vitals Vitals: Vital Signs - 24 hr 12/04/20 12/04/20 12/04/20 10:58 11:30 13:12 Temperature 37.3 C Heart Rate 113 H 94 90 Respiratory 14 17 18 Rate Blood Pressure 153/98 H 139/81 H 127/73 O2 Saturation 100 99 94 Oxygen O2 Source Room air - Rads (name of study) CT head without Radiology: Prelim report reviewed (Impression: No acute intracranial abnormality.), EMP read indepedently, See rad report CT cervical spine Radiology: Prelim report reviewed (Impression: No CT evidence of acute traumatic cervical spine injury.), EMP read indepedently, See rad report Procedures - Laceration (location) Scalp Length in cm: 2.5 Wound type: Linear, Clean Neurovascular status: Sensory intact, Motor intact, Vascular intact Anesthesia: Lidocaine 1%, With bicarb Wound preparation: Hibiclens, Irrigated copiously NS, Wound explored, To the base Skin layer closure: Tessie (#3) Other: Patient tolerated well, No complications, Neurovascular intact, Dressing applied, Tetanus UTD PD MEDICAL DECISION MAKING - ED course Complexity details: reviewed results, re-evaluated patient, considered differential, d/w patient ED course: 75-year-old female with a collapse in her bathroom after having her second COVID shot has a laceration to her occiput. She did have a head injury and loss of consciousness and has some knee pain in her neck. Imaging of the head and neck were obtained without evidence of abnormality in the patient's wound was stapled. Departure - Departure Disposition: 01 Home, Self Care Clinical Impression: Occipital scalp laceration Qualifiers: Encounter type: initial encounter Qualified Code(s): S01.01XA - Laceration without foreign body of scalp, initial encounter Cervical strain, acute Qualifiers: Encounter type: initial encounter Qualified Code(s): S16.1XXA - Strain of muscle, fascia and tendon at neck level, initial encounter Condition: Stable Instructions: ED Laceration Scalp Stitch Or Stap, ED Sprain Strain Neck Follow-Up: Atif Hernandez MD [Credentialed Staff Provider] - Comments: Gallant will need to be removed in 7 to 10 days.
[2020-12-04 14:43] VITALS: BP 119/79
== END 2020-12-04 14:57 | disposition home or self-care (01) ==
LOC: ED 10:50
DX: R55 Syncope and collapse (principal); S06.9X9A Unspecified intracranial injury with loss of consciousness of unspecified duration, initial encounter; S01.01XA Laceration without foreign body of scalp, initial encounter; S16.1XXA Strain of muscle, fascia and tendon at neck level, initial encounter; W18.2XXA Fall in (into) shower or empty bathtub, initial encounter; Y92.002 Bathroom of unspecified non-institutional (private) residence as the place of occurrence of the external cause; M47.812 Spondylosis without myelopathy or radiculopathy, cervical region
CPT/HCPCS: 12001; 99284

== ENCOUNTER 2020-12-26 08:58 | Outpatient (CLI) | payer MEDICARE | END 2020-12-26 08:59 | disposition home or self-care (01) | LOC: DI 08:58 | PROVIDERS: ATTEND Internal Medicine | DX: I07.1 Rheumatic tricuspid insufficiency (principal) | CPT/HCPCS: 93306 ==

== ENCOUNTER 2021-01-06 07:58 | Outpatient (CLI) | payer MEDICARE ==
--- NOTE | 2021-01-06 10:10 | CARDIAC PROCEDURE NOTE ---
Stress Test Report Service Date: 01/06/21 Service Time: 08:15 Ordering Provider: Atif Hernandez MD Indication for Test: Intermittent palpitations and syncope after second Covid vaccine Significant Medical History: -The patient is a generally healthy 75 yr old woman, with history of periodic blood pressure elevation in the past, not on chronic anti-hypertensive therapy. She has also had history of intermittent palpitations, described as "waves of heart flutters", typically lasting less than a minute and not associated with other cardiovascular symptoms. On one occasion "about 18 months ago" she had persistent heart rate elevation for which she was evaluated at an Emergency Department; she does not recall a specific diagnosis or initiation of any medication. She reports that her prior exercise routine was curtailed during the earlier Covid pandemic, though she continues doing moderate walking and gardening. She has some concern for deconditioning over this interval. -In early November, the night after receiving her second Covid vaccine she experienced severe pre-syncope upon arising to use the bathroom in the middle of the night. She was able to stabilize herself enough to walk to the bathroom but after voiding she had to sit on the edge of her bathtub, with worsening lightheadedness followed by kim syncope, associated with head trauma and laceration requiring E.D. evaluation and treatment. She was hypertensive at presentation, with EKG showing poor precordial R-wave progression V1-V3 but no acute ischemic changes; high sensitivity troponin was negative, though BNP level slightly elevated (162 pg/ml). Subsequently she has not experienced lightheadedness/pre-syncope/syncope, or other change in her baseline status. -A diagnostic echocardiogram performed in the past 2 weeks was interpreted as normal in all aspects. Cardiac Risk Factors: She has had elevated blood pressures without diagnosis of hypertension and moderate hyperlipidemia, not on hypolipidemic therapy. She has never been a tob acco smoker, nor diagnosed with diabetes. She is unaware of atherosclerotic disease in close relatives. Type of Stress Test: Exercise Treadmill Test (ETT) Procedure: -Exercise Treadmill Test- After signing informed consent, the patient performed treadmill exercise using a Martinez protocol. The patient exercised for 5 minutes 2 seconds and achieved a peak heart rate of 164 (112 percent predicted maximum heart rate for age), and an estimated workload of 7.05 METS. The test was terminated due to achieving target heart rate, with fatigue/shortness of breath. She denied lightheadedness or chest pressure/discomfort. Resting heart rate: 97 Peak heart rate: 164 Normal response to exercise. Resting BP: 174/99 Peak BP: 190/88 Hypertensive at rest with normal BP response to exercise. Rhythm during exercise: Sinus rhythm throughout, with rare isolated PVCs. Symptoms: No specific cardiovascular symptoms. EKG at rest showed normal sinus rhythm with low precordial QRS voltages; otherwise normal QRS/ST/T pattern. EKG at peak stress showed horizontal ST depression in inferior and lateral leads, meeting diagnostic criteria for ischemia. In Recovery heart rate recovery/decrease was somewhat slower than average (only decreased 4 beats at one minute recovery). No imaging was ordered with this stress test. IDeondre MD, was present throughout this exercise stress test and supervised it in all aspects. Summary: 1) Average exercise tolerance for age as evidenced by CRISTI of 5% (active scale). 2) Normal resting EKG. 3) Adequate level of exercise was achieved on this treadmill stress test. 4) Hypertensive at rest, but with normal incremental BP response to exercise. 5) ST depression by EKG was seen at peak exercise, with differential including nonspecific finding due to female gender or supraphysiologic heart rate achieved, hypertension OR cardiac ischemia (though she did not experience symptoms concerning for myocardial ischemia). 6. We recommended that patient obtain a set of home BP measurements at various times, for review with primary provider and consideration of anti-HTNsive therapy. Although the test was in general reassuring for absence of high risk findings, inducible ischemia could not be definitively excluded and consideration of repeat testing with associated imaging, e.g. echocardiographic, could be undertaken after BP control has been addressed.
== END 2021-01-06 07:59 | disposition home or self-care (01) ==
LOC: DI 07:58
PROVIDERS: ATTEND Internal Medicine
DX: R00.2 Palpitations (principal); I47.1 Supraventricular tachycardia; I10 Essential (primary) hypertension

== ENCOUNTER 2021-04-06 13:58 | Outpatient (CLI) | payer MEDICARE ==
--- NOTE | 2021-04-07 13:46 | Mammography Report ---
BILATERAL DIGITAL SCREENING MAMMOGRAM 3D/2D: 04/06/2021 CLINICAL: Family history of breast cancer. Comparison is made to exams dated: 12/05/2019 mammogram, 02/12/2015 mammogram, and [facility] There are scattered fibroglandular elements in both breasts. No significant masses, calcifications, or other findings are seen in either breast. There has been no significant interval change. IMPRESSION: NEGATIVE There is no mammographic evidence of malignancy. A 1 year screening mammogram is recommended. This exam was interpreted at Station ID: [id number]. NOTE: For mammograms, a report in lay terms will be sent to the patient. Approximately 15% of breast malignancies will not be visualized mammographically. In the management of a palpable breast mass, a negative mammogram must not discourage biopsy of a clinically suspicious lesion. Electronically Signed By: Sage James M.D. ddp/penrad:04/06/2021 15:33:51 ACR BI-RADS Category 1: Negative [id number] PARENCHYMAL PATTERN: (A) - The breast(s) demonstrate(s) scattered fibroglandular densities. BI-RADS CATEGORY: (1) - 1 RECOMMENDATION: (ANNUAL) - Recommend routine annual screening mammography. [id number] 1 year screening LATERALITY: (B)
== END 2021-04-06 13:59 | disposition home or self-care (01) ==
LOC: DI.S 13:58
PROVIDERS: ATTEND Internal Medicine
DX: Z12.31 Encounter for screening mammogram for malignant neoplasm of breast (principal); Z80.3 Family history of malignant neoplasm of breast